=== PATIENT | female | born 1965 | race Asian ===

== ENCOUNTER 2024-01-19 13:31 | Emergency (ER) | payer OTHER, BC ==
[2024-01-19 13:45] VITALS: BP 102/68; PULSE 95; RESP 18; TEMP 98.9; BMI 33.4
[2024-01-19] MEDS ORDERED: LIDOCAINE 4% PATCH TP ONE (15:29)
[2024-01-19] MEDS ORDERED: ACETAMINOPHEN 500 MG TABLET (FP) ONE (15:30)
[2024-01-19] MEDS: LIDOCAINE 4% PATCH TP ONE (15:35)
[2024-01-19] MEDS: ACETAMINOPHEN 500 MG TABLET (FP) PO ONE (15:35)
[2024-01-19] MEDS ORDERED: LIDOCAINE PATCH REMOVAL MC ONE (22:00)
== END 2024-01-19 15:55 | disposition home or self-care (01) ==
LOC: JERFT 13:31
DX: M54.6 Pain in thoracic spine (principal); V49.50XA Passenger injured in collision with unspecified motor vehicles in traffic accident, initial encounter; Y92.410 Unspecified street and highway as the place of occurrence of the external cause
CPT/HCPCS: 99283-25